=== PATIENT | male | born 1965 | race Hispanic/Latino ===

== ENCOUNTER 2018-01-10 09:42 | Outpatient (CLI) | payer OTHER ==
[2018-01-10 10:10] LABS: POTASSIUM 3.7 mmol/L (3.6-5.2)
[2018-01-10 10:15] LABS: PLATELET COUNT 372 K/uL (142-355)
== END 2018-01-10 23:03 | disposition home or self-care (01) ==
LOC: US 09:42
PROVIDERS: Podiatrist
DX: I82.421 Acute embolism and thrombosis of right iliac vein (principal); M10.071 Idiopathic gout, right ankle and foot
CPT/HCPCS: 36415; 80053; 84550; 85027; 85651